=== PATIENT | male | born 1950 | race Caucasian/White ===

== ENCOUNTER 2017-11-09 20:26 | Inpatient (IN) | payer OTHER ==
[~2017-11-09] VITALS: Ht 177.8 cm; Wt 127.2 kg
[~2017-11-09 20:26] MED LIST: DIOVAN HCT 31 TABLE1 PO; INDOCIN50 MG PO; MOBIC15 MG PO; NORVASC5 MG PO; ZOCOR20 MG PO
[2017-11-10 12:33] VITALS: BP 150/89
[2017-11-10 18:17] VITALS: BP 164/93
[2017-11-10 20:36] VITALS: BP 154/86
[2017-11-11 00:07] VITALS: BP 115/69
[2017-11-11 04:28] VITALS: BP 106/71
[2017-11-11 06:07] LABS: HEMATOCRIT 34.8 % (38.0-50.0); HEMOGLOBIN 12.3 G/DL (12.5-16.6); MCV 92.3 FL (86-99)
[2017-11-11 06:33] LABS: CHLORIDE 96 MEQ/L (99-109); CREATININE 0.8 MG/DL (0.6-1.3); GFR ESTIMATE (CALCULATED) > 59 mL/min/ (58.99-99999); GLUCOSE 122 mg/dL (70-99); POTASSIUM 4.5 MEQ/L (3.7-5.4); SODIUM 131 MEQ/L (136-147); UREA NITROGEN (BUN) 14 mg/dL (9-23)
[2017-11-11 07:44] VITALS: BP 117/75
[2017-11-11 11:58] VITALS: BP 147/80
[2017-11-11] MEDS ORDERED: CELECOXIB200 MG PO (14:13)
[2017-11-11] MEDS ORDERED: ELIQUIS2.5 MG PO (14:13)
[2017-11-11] MEDS ORDERED: OXYCODONE HCL5 MG PO (14:14)
== END 2017-11-11 15:10 | DRG 470 ==
LOC: ENRESERV 20:26 → 2SOUTH 11-10 09:58 → 3WEST 11-10 18:03
PROVIDERS: Orthopaedic Surgery
PROC: 0SRC0J9 Replacement of Right Knee Joint with Synthetic Substitute, Cemented, Open Approach (ICD-10-PCS; principal; 2017-11-10)
DX: M17.11 Unilateral primary osteoarthritis, right knee (principal); E87.1 Hypo-osmolality and hyponatremia; I10 Essential (primary) hypertension; M10.9 Gout, unspecified; F17.210 Nicotine dependence, cigarettes, uncomplicated
CPT/HCPCS: 80048; 85014; 85018; C1713; J0690; J1100; J1885; J2250; J2405; J2795; J3010; J7050; Q0175; S0020